=== PATIENT | male | born 1960 | race Two or more races ===

== ENCOUNTER 2019-01-22 19:56 | Emergency (ER) | payer OTHER ==
[2019-01-22] MEDS: KETOROLAC 60 MG INJ IM (20:23)
== END 2019-01-22 22:33 | disposition home or self-care (01) ==
LOC: FTE 19:56
DX: S99.922A Unspecified injury of left foot, initial encounter (principal); S79.912A Unspecified injury of left hip, initial encounter; S89.92XA Unspecified injury of left lower leg, initial encounter; F17.210 Nicotine dependence, cigarettes, uncomplicated; V29.9XXA Motorcycle rider (driver) (passenger) injured in unspecified traffic accident, initial encounter
CPT/HCPCS: 72170; 73562; 73630-LT; 96372; 99284-25